=== PATIENT | female | born 2000 | race Caucasian/White ===

== ENCOUNTER 2018-09-04 21:06 | Outpatient (CLI) | END 2018-09-05 01:20 | disposition home or self-care (01) ==

== ENCOUNTER 2018-10-10 17:48 | Outpatient (CLI) | payer BC, MEDICAID ==
[~2018-10-10] VITALS: Ht 160 cm; Wt 81.2 kg
[~2018-10-10 17:48] MED LIST: PREN-19 PO
[2018-10-10 18:26] VITALS: Ht 160 cm; Wt 81.2 kg
--- NOTE | 2018-10-10 19:53 | PN ---
Triage Information Date/Time [birth year] Reason for visit: watery diarrhea x4 today last one 1700 Weeks of Gestation 32weeks /Para Diabetes: none Hypertention: none Additional information denies any nausea or vomiting no eat out denies any abdominal pain Objective 119/60 ,92.18 ,98.3 Heart Rate: 140's Contractions: None Exam tongue moist abdomen soft neg for tenderness Results/Medications Results 24 hrs Laboratory Tests Test 10/10/18 18:00 Urine Color YELLOW Urine Clarity CLEAR Urine pH 7.0 Urine Specific [place] 1.003 Urine Ketones NEGATIVE Urine Nitrite NEGATIVE Urine Bilirubin NEGATIVE Urine Urobilinogen NEGATIVE Urine Leukocyte Esterase TRACE A Urine Microscopic RBC 0 Urine Microscopic WBC 2 Urine Squamous Epithelial Cells FEW Urine Bacteria FEW A Urine Hemoglobin NEGATIVE Urine Glucose NEGATIVE Urine Total Protein NEGATIVE Imaging Results BP 05/12 CHI 15.2 Disposition: Discharge Assessment/Plan A IUP 32w AGE P d/s home with clear liquid diet RTH prn EVELYN RINCON MD Oct 10, 2018 19:53
--- NOTE | 2018-10-10 20:22 | TRIAGE ---
OB Triage Datetime Report Generated by CPN: 10/10/2018 20:21 Datetime: 10/10/2018 19:44 Labor Evaluation Frequency: x2 Monitor Mode: External (Annotations: removed) Duration (sec)2399: 40-90 Heart Rate FHR Baseline Rate: 140 Monitor Mode: External US (Annotations: removed) Variability: Moderate 6-25 bpm Accelerations: 15X15 Datetime: 10/10/2018 19:21 Stage of : OB Triage Assessment Type: Triage Maternal Assessment Level of Consciousness: Fully Conscious DTR's/Clonus: DTRs 2+; No Clonus Headache: Denies Blurred Vision: No Respiratory Effort: Unlabored; Regular Rhythm; Equal Expansion Breath Sounds, Left: Clear and Equal Breath Sounds, Right: Clear and Equal Nausea/Vomiting: Denies RUQ Epigastric Pain: Denies Lower Extremities Edema: None Degree: None Upper Extremities Edema: None Degree: None Facial Edema: None Temperature Route: Oral Fall Risk Assessment History of Falling: (0) No Secondary Diagnosis: (0) No Ambulatory Aid: (0) Bedrest/Nurse Assist IV Therapy: (0) No Gait: (0) Normal/Bedrest/Immobile Mental Status: (0) Oriented to Own Ability Fall Score: 0 Fall Risk Score Definition: No Risk: No action required Comments: Patient states she feels active movement Pain Assessment Pain Scale: 0 Pain Presence: None/Denies Pain Type: N/A Pain Assessment Comments: Patient denies feeling contractions at this time. Datetime: 10/10/2018 19:16 Stage of : OB Triage Maternal Assessment Level of Consciousness: Fully Conscious DTR's/Clonus: DTRs 1+ Headache: Denies Breath Sounds, Left: Clear and Equal Breath Sounds, Right: Clear and Equal Nausea/Vomiting: Denies RUQ Epigastric Pain: Denies Labor Evaluation Frequency: X1 Monitor Mode: External Duration (sec)2399: 60 Quality: Mild Pattern: Normal: <= 5 Contractions in 10 Minutes Resting Tone [place]: Relaxed Heart Rate FHR Baseline Rate: 145 Monitor Mode: External US Variability: Moderate 6-25 bpm Accelerations: 10X10 Decelerations: None Category: Category I Pain Assessment Pain Scale: 0 Pain Presence: None/Denies Pain Type: N/A Pain Goal: 3 Vaginal Exam Membrane Status: Intact Datetime: 10/10/2018 18:46 Stage of : OB Triage Maternal Assessment Level of Consciousness: Fully Conscious DTR's/Clonus: DTRs 1+ Headache: Denies Breath Sounds, Left: Clear and Equal Breath Sounds, Right: Clear and Equal Nausea/Vomiting: Denies RUQ Epigastric Pain: Denies Labor Evaluation Frequency: NONE Monitor Mode: External Resting Tone [place]: Relaxed Heart Rate FHR Baseline Rate: 145 Monitor Mode: External US Variability: Moderate 6-25 bpm Accelerations: 10X10 Decelerations: None Category: Category I Pain Assessment Pain Scale: 0 Pain Presence: None/Denies Pain Type: N/A Pain Goal: 3 Vaginal Exam Membrane Status: Intact Datetime: 10/10/2018 18:29 Maternal Assessment Level of Consciousness: Fully Conscious DTR's/Clonus: DTRs 1+ Headache: Denies Blurred Vision: No Respiratory Effort: Unlabored Breath Sounds, Left: Clear and Equal Breath Sounds, Right: Clear and Equal Nausea/Vomiting: Denies RUQ Epigastric Pain: Denies Facial Edema: None Labor Evaluation Frequency: NONE Monitor Mode: External Resting Tone [place]: Relaxed Heart Rate FHR Baseline Rate: 145 Monitor Mode: External US Variability: Moderate 6-25 bpm Accelerations: 10X10 Decelerations: None Category: Category I Pain Assessment Pain Scale: 0 Pain Presence: None/Denies Pain Type: N/A Pain Goal: 3 Vaginal Exam Membrane Status: Intact Datetime: 10/10/2018 17:34 Time of Arrival: 10/10/2018 17:34 EGA: 32.0 Arrived By: Ambulatory Arrived From: Home Chief Complaint: PT CAME IN C/O DIARRHEA SINCE THIS AM X 4 WATERY STOOLS. DENIES ANY OTHER PROBLEM AT THIS TIME. Movement: Present Contractions: Denies/Absent Rupture of Membranes: Denies Vaginal Bleeding: None Vaginal Discharge: Denies Recent Sexual Intercouse: Denies Abdominal Trauma: Not Applicable Patient Complaints: Other Additional Patient Complaints: NONE Time Provider Notified: 10/10/2018 18:10 Provider Notified: HADADIAN Initial Plan: NST, BPP, UA Datetime: 09/04/2018 22:00 EGA: 26.6
== END 2018-10-10 19:58 | disposition home or self-care (01) ==
LOC: OBT 17:48 → L-D 17:50 → OBT 19:58
PROVIDERS: ATTEND Obstetrics & Gynecology
DX: O99.612 Diseases of the digestive system complicating pregnancy, second trimester (principal); K52.9 Noninfective gastroenteritis and colitis, unspecified; R19.7 Diarrhea, unspecified; Z3A.32 32 weeks gestation of pregnancy
CPT/HCPCS: 76818; 81001; Z7500; G0463